=== PATIENT | female | born 1950 | race Caucasian/White ===

== ENCOUNTER 2021-10-19 23:00 | Inpatient (IN) | payer OTHER ==
[~2021-10-19] VITALS: Ht 157.5 cm; Wt 35.8 kg
[~2021-10-19 23:00] MED LIST: ACTONEL30 MG PO; ADULT LOW DOSE81 MG PO; CLONAZEPAM 1 MG1 M1 PO; FIBER 61 EACH PO; FISHOIL PO; FLUVOXAMINE MA100 MG; HCTZ PO; LISINOPRIL10 MG PO; LOPRESSOR PO; NEURONTIN 300300 M1 PO; PLAVIX 75 MG TA75 MG PO; RISPERDAL0.5 MG; SIMVASTATIN80 MG PO; VITAMIN D1000 UNI1 PO
[2021-10-19 23:02] VITALS: BP 174/102
[2021-10-19 23:26] LABS: ABSOLUTE NEUTROPHILS 5.9 thou/uL (1.4-8.2); BASOPHILS 0.6 % (0.0-2.0); EOSINOPHILS 0.8 % (0.0-3.0); HEMATOCRIT 37.8 % (37.0-47.0); HEMOGLOBIN 12.2 gm/dL (12.0-15.0); LYMPHOCYTES 29.8 % (24.0-44.0); MCH 34.3 pg (26.0-34.0); MCHC 32.4 g/dL (28.0-37.0); MCV 105.7 fL (80.0-100.0); MONOCYTES 6.7 % (1.0-8.0); PLATELET COUNT 318 thou/uL (150-400); POLYS 62.1 % (36.0-66.0); RBC 3.58 mil/uL (4.20-5.00); RDW 14.1 % (10.5-14.5); WBC 9.5 thou/uL (4.0-11.0)
[2021-10-19 23:40] LABS: CALCIUM 8.7 mg/dL (8.5-10.1); CREATININE 0.7 mg/dL (0.6-1.0); POTASSIUM 3.9 mmol/L (3.5-5.1)
[2021-10-19 23:50] LABS: ALBUMIN 3.8 g/dL (3.4-5.0); TOTAL BILIRUBIN 0.3 mg/dL (0.2-1.0); TOTAL PROTEIN 6.7 g/dL (6.4-8.2)
[2021-10-20] MEDS ORDERED: BREZTRI AEROS10.7 GM INH (00:07)
[2021-10-20] MEDS ORDERED: VISTARIL 25 MG25 M1 PO (00:08)
[2021-10-20] MEDS ORDERED: NORVASC5 MG PO (00:09)
[2021-10-20] MEDS ORDERED: NEURONTIN 400M400 M2 PO (00:09)
[2021-10-20] MEDS ORDERED: ZOCOR 10 MG TAB10 M1 PO (00:10)
[2021-10-20] MEDS ORDERED: TIZANIDINE HCL4 M2 PO (00:11)
[2021-10-20] MEDS ORDERED: TRAZODONE HCL100 MG PO (00:11)
[2021-10-20 01:40] LABS: BE(vivo) -1.7 mmol/L (-2 to +3); HCO3 25.6 mmol/L (22.0-26.0); PO2 424.2 mmHg (80.0-100.0); pH 7.293 (7.360-7.450); sO2 99.8 % (92.0-98.0)
--- NOTE | 2021-10-20 07:52 | EKG ---
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 <ELECTRONICALLY SIGNED> By: Rajiv Yanez MD, FAC 10/20/21 [id number] Rajiv Yanez MD, [facility] /EPI
[2021-10-20 09:22] VITALS: BP 148/74
[2021-10-20 09:27] VITALS: BP 148/74
--- NOTE | 2021-10-20 14:28 | NUR ---
70 year old female presents to the ED on via EMS with SOA. Baseline 02 of 4-6 liters. EMS reports upon arrival found patient at 78% on 6 liters and then placed on C-pap. The patient has been admitted with acute exacerbation of COPD, Acute on Chronic hypoxic respiratory failure, CKD, HTN, Tobaccoism and Hx of breast CA. Of note per ED Triage assessment patient noted as unvaccinated and per ED ID NOW listed as negative. Presently patient is on Bipap at 30% FI02. The patient per medical record is A&O x4 and lives independently in her own apartment. She lists her daughter Senait Arechiga at [phone] as next of kin with her son Kedar Mathew at [phone] as well. CM will follow for discharge needs once therapy evaluations are completed in conjunction with MD assessment (s).
[2021-10-20 14:36] VITALS: BP 152/59
[2021-10-20 21:52] VITALS: BP 150/63
[2021-10-21 02:06] LABS: GLYCOHEMOGLOBIN (HGB A1C) 4.9 % (4.8-5.6)
--- NOTE | 2021-10-21 05:26 | NUR ---
PATIENT ADMITTED FROM ER VIA WHEELCHAIR. SHE IS AAOX4 AND IS 95% ON 4L NC. PATIENT DENIES PAIN OR NEEDS. SHE IS UNSTEADY ON HER FEET AND REQUIRES ASSISTANCE X1 TO GO TO THE RESTROOM. SHE IS COMPLIANT WITH MEDICATION AND TREATMENT. STATES THAT SHE FEELS MUCH BETTER. SHE DOES HAVE SOME WHEEZING IN HER LOWER LUNDS. ALL SAFETY PRECAUTIONS ARE IN PLACE. NSR ON MONITOR.
[2021-10-21 05:45] VITALS: BP 123/61
[2021-10-21 07:50] VITALS: BP 137/48
[2021-10-21 11:20] VITALS: BP 148/108
[2021-10-21 15:30] VITALS: BP 140/53
--- NOTE | 2021-10-21 16:10 | NUR ---
PATIENT ADMITTED FOR ACUTE EXACERBATION OF COPD, ACUTE ON CHRONIC RESP FAILURE. CHART REVIEWED AND DISCUSSED WITH CARE TEAM. CM MET WITH PT THIS DAY. CM ROLE INTRODUCED. PT REPORTS SHE LIVES AND HOME IN AN APARTMENT ON HER OWN. SHE IS DEPENDENT ON HOME O2 4-6L/NC BUT DOES REMEMBER THE NAME OF HER SERVICE PROVIDER. SHE IS INDEPENDENT WITH ADLS AND MOBILITY AND HAS NOT UTULIZED HH OR SNF DIRECTOR CARDIAC. PT REPORTS HER PCP IS JIMBO MONTES. SHE REPORTS SHE IS INTERESTED IN HOME HEALTH ONCE MEDICALLY STABLE TO DC. AWAITING THERPAY RECOMMENDATIONS. PT CHOOSES [facility], [facility], [facility], AND [facility] . REFERRALS SENT. [facility] AND [facility] REPORT THEY ARE NOT [facility] PROVIDERS. SHOULD PT BE ACCEPTED TO [facility] THE PHONE # IS [phone] AND FAX ORDERS TO [phone]. [facility] PHONE # IS [phone] AND FAX ORDERS TO [phone]. IT IS ANTICIPATED PT WILL BE MEDICALLY STABLE TO DC IN 24-48 HOURS. CM FOLLOWING. FAX REFERRAL TO
[2021-10-21 20:20] VITALS: BP 146/66
--- NOTE | 2021-10-22 03:34 | NUR ---
RECEIVED CARE OF THIS PAITENT AT 1900. PATIENT ALERT AND ORIENTED X4. ACCUCHECK WAS 195, RECEIVED 3 UNITS OF LISPRO INSULIN. UP WITH SBA ONLY. ON TELE. HAS UNCONTROLLED TRMORS AT TIMES. DENIES PAIN. DENIES PAIN. SLEPT MOST OF NIGHT.
[2021-10-22 04:05] VITALS: BP 162/77
[2021-10-22 07:47] VITALS: BP 151/68
[2021-10-22] MEDS ORDERED: IPRAT-ALBUT 0.5-3 ML INH (07:59)
[2021-10-22] MEDS ORDERED: PREDNISONE 20 M20 MG PO (07:59)
[2021-10-22] MEDS ORDERED: PROAIR HFA8.5 GM INH (07:59)
[2021-10-22] MEDS ORDERED: LYMEPAK100 MG PO (07:59)
[2021-10-22] MEDS ORDERED: PEPCID20 MG PO (07:59)
[2021-10-22] MEDS ORDERED: COZAAR 25 MG TA25 M1 PO (08:02)
[2021-10-22 11:09] VITALS: BP 147/59
[2021-10-22 15:08] VITALS: BP 135/52
[2021-10-22 15:23] VITALS: BP 135/52
--- NOTE | 2021-10-22 18:28 | NUR ---
PATIENT COMPLIANT WITH ALL MEDICATIONS. EXERCISE OXIMETRY PERFORMED WITH PATIENT ON 3 L VIA NC AND SAT GREATER THAN 90%, 2 L AT REST. RESULTS RELAYED TO PATIENT NEW PARAMETERS AT HOME. IV ABX GIVEN. PATIENT STEADY ON FEET BUT FEELS BETTER WITH SOMEONE ON STANDBY. SR ON MONITOR WITH HEART RATE 70-90S. DENIES ANY CP OR SOA. DISCHARGE PAPERWORK REVIEWED AND SIGNED. IV AND TELE REMOVED. PATIENT STATES THAT SHE FEELS BETTER THAN SHE DID UPON ADMISSION. PATIENT TAKEN VIA WHEELCHAIR TO THE ER ENTRANCE TO BE DRIVEN HOME BY DAUGHTER.
== END 2021-10-22 17:25 | disposition home health service (06) | DRG 189 ==
LOC: ER 23:00 → 2N 10-20 04:01 → EROBS 10-20 04:01 → 2N 10-20 21:21
PROVIDERS: Emergency Medicine; Nurse Practitioner Family; ADMIT Hospitalist; ATTEND Hospitalist
PROC: 5A09357 Assistance with Respiratory Ventilation, Less than 24 Consecutive Hours, Continuous Positive Airway Pressure (ICD-10-PCS; principal; 2021-10-20)
DX: J96.21 Acute and chronic respiratory failure with hypoxia (principal); E43 Unspecified severe protein-calorie malnutrition; Z68.1 Body mass index [BMI] 19.9 or less, adult; E87.2 Acidosis; J96.22 Acute and chronic respiratory failure with hypercapnia; Z20.822 Contact with and (suspected) exposure to COVID-19; E78.5 Hyperlipidemia, unspecified; F41.9 Anxiety disorder, unspecified; F17.210 Nicotine dependence, cigarettes, uncomplicated; R73.9 Hyperglycemia, unspecified; G47.00 Insomnia, unspecified; Z66 Do not resuscitate; J43.9 Emphysema, unspecified; I12.9 Hypertensive chronic kidney disease with stage 1 through stage 4 chronic kidney disease, or unspecified chronic kidney disease; N18.9 Chronic kidney disease, unspecified; R91.1 Solitary pulmonary nodule; I73.9 Peripheral vascular disease, unspecified; I25.10 Atherosclerotic heart disease of native coronary artery without angina pectoris; T38.0X5A Adverse effect of glucocorticoids and synthetic analogues, initial encounter; Y92.89 Other specified places as the place of occurrence of the external cause; Z79.899 Other long term (current) drug therapy; I25.2 Old myocardial infarction; Z88.2 Allergy status to sulfonamides; Z95.820 Peripheral vascular angioplasty status with implants and grafts; Z90.710 Acquired absence of both cervix and uterus; Z95.5 Presence of coronary angioplasty implant and graft; Z88.6 Allergy status to analgesic agent; Z88.0 Allergy status to penicillin; Z85.3 Personal history of malignant neoplasm of breast; Z90.11 Acquired absence of right breast and nipple; Z71.6 Tobacco abuse counseling; Z99.81 Dependence on supplemental oxygen; Z28.21 Immunization not carried out because of patient refusal
CPT/HCPCS: 10081